=== PATIENT | female | born 1975 | race Two or more races ===

== ENCOUNTER 2023-12-18 11:56 | Emergency (ER) | payer MEDICAID, OTHER ==
[~2023-12-18] VITALS: Ht 157.5 cm; Wt 57.3 kg
[2023-12-18 13:10] VITALS: BP 117/77; PULSE 72; RESP 17; O2SAT 99
[2023-12-18] MEDS ORDERED: IBUP-1454 PO (13:51)
[2023-12-18] MEDS ORDERED: AMOX875T3 PO (13:51)
== END 2023-12-18 13:58 | disposition home or self-care (01) ==
LOC: ER 11:56
DX: T16.1XXA Foreign body in right ear, initial encounter (principal); H66.91 Otitis media, unspecified, right ear; Z79.1 Long term (current) use of non-steroidal anti-inflammatories (NSAID); Z79.2 Long term (current) use of antibiotics; X58.XXXA Exposure to other specified factors, initial encounter; Y93.89 Activity, other specified; Y92.89 Other specified places as the place of occurrence of the external cause; Y99.8 Other external cause status
CPT/HCPCS: 69200